=== PATIENT | female | born 1960 | race Caucasian/White ===

== ENCOUNTER 2019-02-08 20:58 | Emergency (ER) | payer SELFPAY ==
[~2019-02-08] VITALS: Ht 157.5 cm; Wt 57.2 kg
--- NOTE | 2019-02-08 21:54 | ED Integumentary General ---
General Chief Complaint: Skin/Wound Problems Stated Complaint: LT KNEE SUN BURN Nursing Triage Note: Patient states that she was swimming on 02/03/19 in [place]. Patient was swimming in jeans with a hole in the knee. Patient states she was badly sunburned on her left knee. Patient had been putting coconut oil, vitamin E, Aloe and Neosporin on it. Patient is concerned it is getting infected. Patient's left knee does have skin sloughing. The knee with bright red with a clear/yellow discharge. Patient states that she believes she ran a fever a few days ago but denies a current fever. Source: patient History of Present Illness Date Seen by Provider: Feb 08, 2019 Time Seen by Provider: 21:54 Initial Comments Patient is a 58-year-old female presenting with complaints of increased pain and blistering to her left knee. She developed a severe sunburn on February 03 when she was floating in a [place] while wearing a pair of jeans that had a hole in the left knee. She has been doctoring with several different creams and ointments. Most recently she was using Neosporin. She has gotten the lateral half of the burn to improve however the medial half of the wound was continuing to be bright red and painful. There was blistering that has developed in the last day or so. She has yellow-colored fluid that is draining from the blisters. She does work at [employer] and has been standing in heat for at least 10+ hour days and wearing jeans. This has been causing some additional friction arriving on the burn. She has had some chills but no documented fever. She has some nausea and stomach irritation but she has been taking a lot of ibuprofen to try and help with pain. She denies having a burn that was this bad in the past. She also denies any history of MRSA Allergies and Home Medications Allergies Coded Allergies: codeine (Verified Allergy, Severe, Hives, 02/08/19) Home Medications Amoxicillin/Potassium Clav 1 Each Tablet, 1 EACH PO BID Prescribed by: ELISSA PARIKH on 02/08/192230 Cephalexin 500 Mg Tablet, 500 MG PO QID Prescribed by: ELISSA PARIKH on 02/08/192230 Hydrocodone Bit/Acetaminophen 1 Tab Tab, 1 EACH PO Q6H PRN for PAIN-SEVERE TO BREAKTHROUGH Prescribed by: ELISSA PARIKH on 02/08/19 2231 Patient Home Medication List Home Medication List Reviewed: Yes Review of Systems Review of Systems Constitutional: chills, fever (subjective), malaise EENTM: no symptoms reported Respiratory: no symptoms reported Cardiovascular: no symptoms reported Gastrointestinal: No constipation, No diarrhea; heartburn, nausea (and stomach irritation from taking a lot of ibuprofen.) Genitourinary: No dysuria Musculoskeletal: muscle pain (around the left knee where she has the burn) Skin: change in color (bright red color to the left knee especially on the medial portion where she has a sunburn. There is blistering present as well. There is yellow serous fluid draining from the blisters. No purulence noted. There is no foul odor.) Psychiatric/Neurological: No Symptoms Reported Endocrine: No Symptoms Reported Past Unwbjjj-Kvjfth-Jtcjqe Hx Past Med/Social Hx: Reviewed Nursing Past Med/Soc Hx Patient Social History Alcohol Use: Rarely Uses Number of Drinks Today: 1 Alcohol Beverage of Choice: Beer Recreational Drug Use: No Smoking Status: Current Everyday Smoker Type Used: Cigarettes 2nd Hand Smoke Exposure: Yes Recent Foreign Travel: No Contact w/Someone Who Travel: No Recent Infectious Disease Expo: No Recent Hopitalizations: No Physical Abuse: No Sexual Abuse: No Mistreated: No Fear: No Seasonal Allergies Seasonal Allergies: No Past Medical History Surgeries: Yes (Skin CA removal on face) Respiratory: No Cardiac: No Neurological: No Genitourinary: No Gastrointestinal: No Musculoskeletal: No Endocrine: No HEENT: No Cancer: Yes Skin Did You Recieve Any Treatments: Yes What Type of Treatment Did You: Surgical Intervention Psychosocial: No Integumentary: No Physical Exam Vital Signs Vital Signs - First Documented 02/08/19 21:15 Temp 97.5 Pulse 80 Resp 18 B/P (MAP) 153/75 (101) Pulse Ox 99 O2 Delivery Room Air Capillary Refill : Less Than 3 Seconds General Appearance: WD/WN, no apparent distress HEENT: PERRL/EOMI, pharynx normal Neck: non-tender, supple, normal inspection Cardiovascular: normal peripheral pulses, regular rate, rhythm Respiratory: chest non-tender, lungs clear, normal breath sounds Gastrointestinal: normal bowel sounds, soft, no pulsatile mass Extremities: normal range of motion, non-tender Neurologic/Psychiatric: sour bleaching pleater II-XII nml as tested, alert, oriented x 3 Skin: normal color, warm/dry Skin Problem Location: lower extremities (medial portion of the left knee) Skin Problem Character: erythema, swelling, tenderness, warm, other (increased warmth to the erythema and swollen area of her left medial knee. There is also blistering present with several of the blisters on left having yellow serous drainage.) Progress/Results/Core Measures Results/Orders My Orders Orders - ELISSA PARIKH MD Amoxicillin/Clavulanate Tablet (Augmenti (02/08/19 22:20) Rx-Hydrocodone/Apap 5-325 Mg (Rx-Vicodin (02/08/19 22:30) Medications Given in ED Current Medications Medications Dose Ordered Sig/Saira Route Start Time Stop Time Status Last Admin Dose Admin Acetaminophen/ Hydrocodone Bitart 1 ea Q6H PRN PO 02/08/19 22:30 02/08/19 22:37 DC 02/08/19 22:34 1 EA Vital Signs/I&O 02/08/19 02/08/19 21:15 22:35 Temp 97.5 98.4 Pulse 80 86 Resp 18 16 B/P (MAP) 153/75 (101) 142/82 (102) Pulse Ox 99 98 O2 Delivery Room Air Room Air Blood Pressure Mean: 101 Progress Progress Note : Progress Note Will start on Augmentin for an antibiotic. Prescribed Augmentin and Keflex. If she can't afford the Augmentin and she is to fill the Keflex. A prescription for both were sent with the patient. She was also given a card for Good Rx to try and help with her prescriptions. Given a prescription for a few hydrocodone as well as a take home pack. Advised to check with clinic or return if she is having worsening symptoms. Counseled on return and follow-up precautions. Departure Impression Primary Impression: Second degree sunburn Additional Impression: Cellulitis of left knee Disposition: HOME, SELF-CARE Condition: Stable Departure-Patient Inst. Decision time for Depature: 22:23 Referrals: ISMAEL SCHULER MD (PCP) Primary Care Physician Patient Instructions: Sunburn (DC), Skin Smith (DC), Cellulitis (Skin Infection), Adult (DC) Add. Discharge Instructions: Try to keep your leg elevated when possible. Use antibiotic ointment 2 to 3 times a day to help prevent infection and help the open blisters heal. Apply a non stick dressing and cover the burn and wound, especially when you might have the burn get dirty or it is draining fluid Return or be seen again if you are having redness streaking up the leg, fever over 101 F, or having pus draining from the burn. While taking the antibiotics and pain medicines you should try taking a medicine for stomach acid to help the lining of your stomach heal from the irritation of taking the medicines. Pepcid (Famotidine), Zantac (Ranitidine) or Prilosec (Omeprazole), Prevacid (Lansoprazole) are a few of the medicines that you could take for the next week or two to help with the stomach irritation. Consider taking a Probiotic while on antibiotics to help replace the bacteria in your gut that is being killed off by the medicine. Yogurt with active cultures will also help on this. You may still take Ibuprofen for pain and inflammation while taking the Hydrocodone for severe pain If not doing better by Monday or Monday then check back with clinic or return for further evaluation. All discharge instructions reviewed with patient and/or family. Voiced understanding. Scripts Hydrocodone Bit/Acetaminophen (Hydrocodone/Acetaminophen 5/325mg Tablet) 1 Tab Tab 1 EACH PO Q6H PRN for PAIN-SEVERE TO BREAKTHROUGH MDD 10 for 4 Days, #15 TAB 0 Refills Prov: ELISSA PARIKH MD 02/08/19 Cephalexin (Cephalexin) 500 Mg Tablet 500 MG PO QID for 10 Days, #40 TAB 0 Refills Prov: ELISSA PARIKH MD 02/08/19 Amoxicillin/Potassium Clav (Augmentin 875-125 Tablet) 1 Each Tablet 1 EACH PO BID for 10 Days, #20 TAB 0 Refills Prov: ELISSA PARIKH MD 02/08/19 Work/School Note: Work Release Form Date Seen in the Emergency Department: Feb 08, 2019 Return to Work: Feb 13, 2019 Restrictions: No Restrictions ELISSA PARIKH MD Feb 08, 2019 21:54
[2019-02-08] MEDS ORDERED: AUGMENTIN 875 MG TAB (AMOXICILLIN/CLAVULANATE) PO STA (22:20)
[2019-02-08] MEDS ORDERED: RX-HYDROCODONE/APAP 5/325 MG #4 TAB PK PO PRN (22:30)
[2019-02-08] MEDS ORDERED: CEPH500T PO (22:31)
[2019-02-08] MEDS ORDERED: AMOX-358 PO (22:31)
[2019-02-08] MEDS ORDERED: ACHD5005 PO (22:31)
[2019-02-08 22:35] VITALS: BP 142/82
== END 2019-02-08 22:35 | disposition home or self-care (01) ==
LOC: ER FS 21:00
DX: L55.1 Sunburn of second degree (principal); L03.116 Cellulitis of left lower limb; F17.210 Nicotine dependence, cigarettes, uncomplicated; Z88.5 Allergy status to narcotic agent; Z85.828 Personal history of other malignant neoplasm of skin
CPT/HCPCS: 99283

== ENCOUNTER → 2021-05-20 | Outpatient (CLI) | payer BC ==
[~2021-05-20] MED LIST: ACHD5005 PO; AMOX-358 PO; CEPH500T PO
--- NOTE | 2021-05-20 10:17 | Diagnostic Imaging Report ---
PROCEDURE: Pelvic comp/transvaginal sonogram. TECHNIQUE: Complete transabdominal and transvaginal pelvic ultrasound was performed. In addition, limited pelvic Doppler was performed. INDICATION: Postmenopausal bleeding. Uterus measures 7.5 x 5.1 x 4.6 cm. The endometrium is markedly thickened and heterogeneous and shows vascularity. This measures up to 3.7 cm in thickness. No myometrial mass is detected. Right ovary measures 2.2 x 1.7 x 1.1 cm and the left demonstrates blood flow. Left ovary was not visualized. There is no free fluid. IMPRESSION: 1. Markedly thickened and heterogeneous endometrium measuring 3.7 cm. This is concerning for endometrial neoplasm and tissue sampling would be recommended. 2. Nonvisualized left ovary. Dictated by: Dictated on workstation # [id number]
== END ==
LOC: RAD 09:02
PROVIDERS: ATTEND Physician Assistant
DX: N95.0 Postmenopausal bleeding (principal); R93.89 Abnormal findings on diagnostic imaging of other specified body structures
CPT/HCPCS: 76830; 76856

== ENCOUNTER 2022-02-18 09:38 | Emergency (ER) | payer BC ==
[~2022-02-18] VITALS: Ht 157 cm; Wt 59.0 kg
[2022-02-18 09:51] VITALS: BP 190/113
--- NOTE | 2022-02-18 10:00 | ED Fall/Injury ---
General Chief Complaint: Upper Extremity Stated Complaint: RT WRIST INJ Source: patient History of Present Illness Date Seen by Provider: Feb 18, 2022 Time Seen by Provider: 09:43 Initial Comments 61-year-old female presenting with complaints of pain to her right wrist and forearm after falling around 11 PM last night. She states that she tripped over her dog and fell forward. She also scraped up her right knee but has not had any difficulty walking. She denies hitting her head or losing consciousness. She did take 2 ibuprofen this morning for pain and states it is feeling a little bit better now. She also has a history of high blood pressure but does not take medication for it. She denies any headache, vision change, chest pain, nausea, vomiting. She does have an abrasion to her palm on the right hand that she rinsed last night but has not used any soap or engine cleaner on it. She states her last tetanus booster was a year ago. Location Injury Occurred: home Occurred: yesterday Severity: moderate Injuries/Pain Location: upper extremity (right wrist, hand and forearm), lower extremity (right knee abrasion) Context: tripped Loss of Consciousness: no loss of consciousness Modifying Factors: Worse With Movement; Improves With Pain Medication (ibuprofen helping this am) Associated Symptoms (Fall): No Abdominal Pain, No Chest Pain, No Confusion, No Dizziness, No Headache, No Lightheadedness, No Muscle Spasms, No Nausea/Vomiting, No Neck Pain, No Ringing in Ears, No Seizures, No Shortness of Air, No Slurred Speech, No Trouble Walking, No Vision Changes Allergies and Home Medications Allergies Coded Allergies: codeine (Verified Allergy, Severe, Hives, 02/08/19) Patient Home Medication List Home Medication List Reviewed: Yes Amoxicillin/Potassium Clav (Augmentin 875-125 Tablet) 1 Each Tablet, 1 EACH PO BID Prescribed by: ELISSA LAWRENCERT on 02/08/192230 Cephalexin (Cephalexin) 500 Mg Tablet, 500 MG PO QID Prescribed by: ELISSA LAWRENCERT on 02/08/192230 Hydrocodone Bit/Acetaminophen (Lortab 5 Mg Tablet) 1 Tab Tab, 1 EACH PO Q6H PRN for PAIN-SEVERE TO BREAKTHROUGH Prescribed by: ELISSA LAWRENCERT on 02/08/192230 Hydrocodone/Acetaminophen (Hydrocodone-Acetamin 5-325 mg) 5 Mg-325 Mg Tablet, 1 TAB PO Q6H PRN for PAIN-SEVERE (8-10) Prescribed by: ELISSA PARIKH on 02/18/22 1018 Review of Systems Review of Systems Constitutional: No chills, No diaphoresis, No dizziness, No fever Eyes: No Symptoms Reported Ears, Nose, Mouth, Throat: no symptoms reported Respiratory: no symptoms reported Cardiovascular: no symptoms reported Gastrointestinal: no symptoms reported Genitourinary: no symptoms reported Musculoskeletal: see HPI Skin: see HPI Psychiatric/Neurological: Denies Headache, Denies Numbness, Denies Paresthesia Past Gyxwnio-Eawppb-Qcqiyi Hx Patient Social History Tobacco Use?: Yes Tobacco type used: Cigarettes Use of E-Cig and/or Vaping dev: No Substance use?: No Alcohol Use?: Yes Alcohol type: Beer Alcohol Frequency: Daily Seasonal Allergies Seasonal Allergies: No Past Medical History Surgery/Hospitalization HX: Hypertension Surgeries: Yes (Skin CA removal on face) Respiratory: No Cardiac: No Neurological: No Genitourinary: No Gastrointestinal: No Musculoskeletal: No Endocrine: No HEENT: No Cancer: Yes Skin Did You Recieve Any Treatments: Yes What Type of Treatment Did You: Surgical Intervention Psychosocial: No Integumentary: No Physical Exam Vital Signs Vital Signs - First Documented 02/18/22 09:51 Temp 36.9 Pulse 80 Resp 16 B/P (MAP) 190/113 (138) Pulse Ox 96 O2 Delivery Room Air Capillary Refill : Height, Weight, BMI Height: 5'2.00" Weight: 126lbs. 0oz. 57.202310pb; BMI Method:Stated General Appearance: WD/WN, no apparent distress HEENT: PERRL/EOMI, normal ENT inspection, pharynx normal Neck: non-tender, full range of motion, supple, normal inspection Cardiovascular: normal peripheral pulses, regular rate, rhythm Respiratory: chest non-tender, lungs clear, normal breath sounds Extremities: normal capillary refill, other (decreased ROM of the right wrist and hand due to pain and swelling. Tender to palpation over the wrist and proximal metacarpals and lateral forearm by elbow. Abrasion with skin avulsion to right palm ulnar aspect of hand) Neurologic/Psychiatric: senior consultant II-XII nml as tested, no motor/sensory deficits, alert, normal mood/affect, oriented x 3 Skin: normal color, warm/dry Matthew Coma Score Best Eye Response: (4) Open Spontaneously Best Verbal Response: (5) Oriented Best Motor Response: (6) Obeys Commands [facility] Total: 15 Procedures/Interventions Splinting and Joint Reduction : Location: Right wrist and forearm Pre-Proc Neuro Vasc Exam: normal Post-Proc Neuro Vasc Exam: normal Progress After obtaining verbal consent from the patient a sugar-tong splint with OCL material was placed. Patient was neurovascularly and tendon intact both pre and post splinting. She tolerated procedure well without any immediate complication. Given a sling to help support her arm in the splint. Counseled on follow-up and return precautions. Advised to keep the sling and splint clean and dry. Follow-up with orthopedics within the next week to change agent to a cast. Arm Sling: Kula Hand-Made Type: orthoglass Splint Application: Short Arm Progress/Results/Core Measures Results/Orders My Orders Orders - ELISSA PARIKH MD Hand 3 View Right (02/18/22 09:53) Forearm 2 View Right (02/18/22 09:53) Wound Dressing-Ed (02/18/22 09:53) Ice: Apply To Affected Area (02/18/22 09:53) Elevate Affected Extremity (02/18/22 09:53) Ed Ortho/Other Supplies Order (02/18/22 10:20) Orthopedic Equiment (02/18/22 10:20) Ortho Glass (02/18/22 10:20) Vital Signs/I&O 02/18/22 09:51 Temp 36.9 Pulse 80 Resp 16 B/P (MAP) 190/113 (138) Pulse Ox 96 O2 Delivery Room Air Progress Progress Note #1: Progress Note Clean and dress the abrasion with skin avulsion to the right palm. Ice and elevate to help with pain. Patient drove herself so we will defer any stronger medicine than ibuprofen she already took prior to coming to the ED. X-rays of the hand and forearm since she has pain in those areas and it would also include the wrist on those images to look for signs of fracture or dislocation. She is neurovascularly and tendon intact to her hand and wrist but was having pain with swelling to her wrist especially. She does have elevated blood pressure but patient states that that is chronic for her because she does not take medication. She is supposed to be taking medicine but forgets so she runs high on her blood pressure. Progress Note #2: Progress Note X-rays demonstrate a fracture of the triquetrum. There is a small avulsion off of this bone. Will treat with a sugar-tong splint here in the ED and follow-up with orthopedics for casting. Hydrocodone for severe pain and plain Tylenol and ibuprofen for moderate pain. Encouraged to elevate above heart level and use ice for pain and swelling. Check back with orthopedics in clinic about management and follow-up. Encouraged her to reestablish care with a primary care provider and to take medicine for blood pressure. Given information for [facility] as well as Dr. Schuler Diagnostic Imaging Diagonstic Imaging: Xray Plain Films/CT/US/NM/MRI: forearm Comments [facility], [place] NAME: ZANDER MITCHELL [facility] REC#: [id number] PT STATUS: REG ER : 1960 PHYSICIAN: ELISSA PARIKH MD ADMIT DATE: 02/18/22/ER FS Draft Date of Exam:02/18/22 FOREARM 2 VIEW RIGHT INDICATION: Fall, pain. EXAMINATION: Right forearm 02/18/2022 FINDINGS: 2 views of the forearm redemonstrate the triquetral fracture noted in the dorsum of the wrist with overlying soft tissue swelling as described on the separate hand radiographs. The osseous structures of the forearm intact. The joint spaces at the wrist and elbow intact. IMPRESSION: 1. Triquetral fracture. Dictated on workstation # [id number] Dict: 02/18/22 1011 Trans: 02/18/22 1014 [id number] Interpreted by: FOREIGN KELLY MD Electronically signed by: Reviewed: Reviewed by Me Diagonstic Imaging: Xray Plain Films/CT/US/NM/MRI: hand Comments [facility], [place] NAME: ZANDER MITCHELL [facility] REC#: [id number] PT STATUS: REG ER : 1960 PHYSICIAN: ELISSA PARIKH MD ADMIT DATE: 02/18/22/ER FS Draft Date of Exam:02/18/22 HAND 3 VIEW RIGHT INDICATION: Hand pain after fall. EXAMINATION:: Right hand 02/18/2022 FINDINGS: 3 views of the hand. There is a small osseous fragment along the dorsum of the wrist suggesting triquetral fracture. The remaining visualized osseous structures intact. No dislocations. Degenerative findings with interphalangeal joint space narrowing seen throughout the hand most marked in the distal interphalangeal joint of the 5th finger. IMPRESSION: 1. Suspected acute fracture of the triquetrum. Otherwise chronic degenerative findings. Dictated on workstation # [id number] Dict: 02/18/22 1010 Trans: 02/18/22 1014 [facility] [id number] Interpreted by: FOREIGN KELLY MD Electronically signed by: Reviewed: Reviewed by Me Departure Impression Primary Impression: Displaced fracture of triquetrum [cuneiform] bone, right wrist, initial encounter for closed fracture Additional Impressions: Pain and swelling of right wrist Fall at home Qualified Codes: W19.XXXA - Unspecified fall, initial encounter; Y92.009 - Unspecified place in unspecified non-institutional (private) residence as the place of occurrence of the external cause Abrasion, right knee, initial encounter Abrasion of palm of right hand Qualified Codes: S60.511A - Abrasion of right hand, initial encounter Hypertension Qualified Codes: I10 - Essential (primary) hypertension Disposition: 01 HOME, SELF-CARE Condition: Stable Departure-Patient Inst. Decision time for Depature: 10:46 Referrals: ISMAEL SCHULER MD, [facility],LOCAL PHYSICIAN (PCP) Primary Care Physician GREG PANDA MD, MICHAEL P MD [facility] Patient Instructions: Splint Care ED, High Blood Pressure ED, Wound Care ED, Forearm and Wrist Fractures ED Add. Discharge Instructions: Keep splint on and in place until seen by orthopedics. Keep the splint clean and dry. Try to elevate your wrist above heart level to help with swelling and pain. May apply ice for 20 to 30 minutes every few hours as needed for pain and swelling. Call Dr. Panda's office for orthopedics at [phone]. If you call today try to set up an appointment for next week. When you call let them know you want to see him in [place]. If that is not an option you could call to get appointment with Nurse Practitioner Jey Bashir. He works with Dr. Solitario but he sees patients here in [place]. His number is [phone] When you see orthopedics they will change your splint over to a cast. Typically 4 to 6 weeks immobilized in a cast allows this fracture to heal For severe pain take the hydrocodone with acetaminophen. Otherwise if it is not hurting as much taking ibuprofen and or acetaminophen for the pain. Make sure that you do not take over 4000 mg of acetaminophen in a 24-hour period All discharge instructions reviewed with patient and/or family. Voiced understanding. Scripts Hydrocodone/Acetaminophen (Hydrocodone-Acetamin 5-325 mg) 5 Mg-325 Mg Tablet 1 TAB PO Q6H PRN for PAIN-SEVERE (8-10) for 5 Days, #20 TAB 0 Refills Prov: ELISSA PARIKH MD 02/18/22 Work/School Note: Work Release Form Date Seen in the Emergency Department: Feb 18, 2022 Return to Work: Feb 21, 2022 Restrictions: Need Release from Doctor Other Restrictions Listed Below: Limited use Right Hand until cleared by Orthopedics Restrictions: Keep splint/cast clean and dry ELISSA PARIKH MD Feb 18, 2022 10:00
--- NOTE | 2022-02-18 10:14 | Diagnostic Imaging Report ---
INDICATION: Hand pain after fall. EXAMINATION:: Right hand 02/18/2022 FINDINGS: 3 views of the hand. There is a small osseous fragment along the dorsum of the wrist suggesting triquetral fracture. The remaining visualized osseous structures intact. No dislocations. Degenerative findings with interphalangeal joint space narrowing seen throughout the hand most marked in the distal interphalangeal joint of the 5th finger. IMPRESSION: 1. Suspected acute fracture of the triquetrum. Otherwise chronic degenerative findings. Dictated by: Dictated on workstation # [id number]
--- NOTE | 2022-02-18 10:14 | Diagnostic Imaging Report ---
INDICATION: Fall, pain. EXAMINATION: Right forearm 02/18/2022 FINDINGS: 2 views of the forearm redemonstrate the triquetral fracture noted in the dorsum of the wrist with overlying soft tissue swelling as described on the separate hand radiographs. The osseous structures of the forearm intact. The joint spaces at the wrist and elbow intact. IMPRESSION: 1. Triquetral fracture. Dictated by: Dictated on workstation # [id number]
[2022-02-18] MEDS ORDERED: ACHD5005 PO (10:17)
== END 2022-02-18 11:00 | disposition home or self-care (01) ==
LOC: EDUNIT# 09:38 → ER FS 09:40
DX: S62.111A Displaced fracture of triquetrum [cuneiform] bone, right wrist, initial encounter for closed fracture (principal); S80.211A Abrasion, right knee, initial encounter; S60.511A Abrasion of right hand, initial encounter; I10 Essential (primary) hypertension; F17.210 Nicotine dependence, cigarettes, uncomplicated; W01.0XXA Fall on same level from slipping, tripping and stumbling without subsequent striking against object, initial encounter; Y92.009 Unspecified place in unspecified non-institutional (private) residence as the place of occurrence of the external cause
CPT/HCPCS: 29105; 73090; 73130

== ENCOUNTER → 2022-03-07 | Outpatient (CLI) | payer BC ==
--- NOTE | 2022-03-07 09:38 | Diagnostic Imaging Report ---
INDICATION: Displaced fracture of the triquetrum, pain. COMPARISON: 02/18/2022 TECHNIQUE: 4 radiographs of the right wrist dated 03/07/2022. FINDINGS: Previously noted lucency associated with the triquetral bone is not as well visualized. No new fracture. No dislocation. No destructive osseous process. Carpal alignment is well maintained. No suspicious radiopaque foreign body. IMPRESSION: Previously noted triquetral fracture not as well visualized, likely related to interval healing. No new acute osseous abnormality. Dictated by: Dictated on workstation # [id number]
== END ==
LOC: RAD FS 08:55
PROVIDERS: ATTEND Nurse Practitioner
DX: S62.111A Displaced fracture of triquetrum [cuneiform] bone, right wrist, initial encounter for closed fracture (principal); X58.XXXA Exposure to other specified factors, initial encounter
CPT/HCPCS: 73110